=== PATIENT | male | born 1985 | race Caucasian/White ===

== ENCOUNTER 2018-03-09 02:25 | Inpatient (IN) ==
[2018-03-09] MEDS ORDERED: Tetanus/Diphtheria Toxoid Adult Vaccine Inj 0.5 ML Vial IM ONE (02:35)
[2018-03-09] MEDS ORDERED: Lidocaine 1% Inj 50 ML Vial INFILTRATN ONE (03:08)
[2018-03-09 03:31] LABS: Baso # (Auto) 0.1 th/mm3 (0.0-0.2); Baso % (Auto) 0.6 % (0.0-2.0); Eos % (Auto) 0.4 % (0.0-4.0); Hematocrit 38.2 % (39.0-51.0); Hemoglobin 12.9 gm/dL (13.0-17.0); Lymph # (Auto) 1.1 th/mm3 (1.0-4.8); Lymph % (Auto) 10.1 % (9.0-44.0); Mean Corpuscular HGB Conc 33.8 % (32.0-36.0); Mean Corpuscular Hemoglobin 30.1 pg (27.0-34.0); Mean Corpuscular Volume 88.8 fL (80.0-100.0); Mean Platelet Volume 10.2 fL (7.0-11.0); Mono # (Auto) 0.7 th/mm3 (0.0-0.9); Mono % (Auto) 6.2 % (0.0-8.0); Neut # (Auto) 8.6 th/mm3 (1.8-7.7); Neut % (Auto) 82.7 % (16.0-70.0); Platelet Count 129 th/mm3 (150-450); Red Cell Distribution Width 12.7 % (11.6-17.2); White Blood Count 10.4 th/mm3 (4.0-11.0)
[2018-03-09] MEDS ORDERED: LORazepam 1 MG Tablet PO ONE ×2 (03:44→08:11)
[2018-03-09 04:14] LABS: Alanine Aminotransferase 20 U/L (12-78); Albumin 3.4 g/dL (3.4-5.0); Alkaline Phosphatase 50 U/L (45-117); Anion Gap 14 meq/L (5-15); Aspartate Aminotransferase 13 U/L (15-37); Blood Urea Nitrogen 12 mg/dL (7-18); Calcium 6.8 mg/dL (8.5-10.1); Chloride 106 meq/L (98-107); Glomerular Filtration Rate Greater Than 89 mL/min (>89); Glucose,Random 100 mg/dL (74-106); Potassium 3.2 meq/L (3.5-5.1); Sodium 139 meq/L (136-145); Total Protein 5.9 g/dL (6.4-8.2)
[2018-03-09 04:19] LABS: Alcohol 225 mg/dL (0-5)
[2018-03-09] MEDS ORDERED: Calcium Gluconate Inj 2 GM in Dextrose 5% in Water Inj 100 ML IV.SIG ONE ×2 (04:28)
--- NOTE | 2018-03-09 04:47 | ED ---
HPI General Chief Complaint: Psychiatric Symptoms Stated Complaint: Psych Eval/VCSO/EVAC Time Seen by Provider: 03/09/18 02:35 Source: patient, EMS and police History of Present Illness HPI Narrative: Patient was drinking tonight, is a history of depression previous self-harm, fighting with his girlfriend, son and his girlfriend away, she felt bad a came back to check on him and found him having lacerated both arms with a pocket knife. Law-enforcement reports there is blood everywhere, and that he patient is very cooperative with EMS. Patient complains only of pain in his arms on his his lacerations. Related Data Home Medications Medication Instructions Recorded Confirmed Bipolar Med 03/09/18 Allergies Allergy/AdvReac Type Severity Reaction Status Date / Time No Known Allergies Allergy Unverified 03/09/18 03:06 Review of Systems ROS Unobtainable All other systems reviewed negative except as stated in HPI [facility] Medical History Medical History Bipolar disorder (Acute) Social History Social History Substance History: Unable to Obtain Smoking Status: Former smoker Tobacco Type: Cigarettes How Often Do You Have a Drink Containing Alcohol: Unable to Obtain Recent Travel in [facility] within the Last 8 Weeks: No Immunization History Tetanus Immunization: Unsure Exam Narrative Exam Narrative: GENERAL: Well-appearing 32-year-old man, no acute distress. SKIN: Focused skin assessment warm/dry. HEAD: Atraumatic. Normocephalic. EYES: Pupils equal and round. No scleral icterus. No injection or drainage. ENT: No nasal bleeding or discharge. Mucous membranes pink and moist. NECK: Trachea midline. No JVD. CARDIOVASCULAR: Regular rate and rhythm. No murmur appreciated. RESPIRATORY: No accessory muscle use. Clear to auscultation. Breath sounds equal bilaterally. GASTROINTESTINAL: Abdomen soft, non-tender, nondistended. Hepatic and splenic margins not palpable. MUSCULOSKELETAL: No obvious deformities. 2 large approximately 10 severe lacerations on the no and evidence of tendon injury. Distally neurovascularly intact. NEUROLOGICAL: Awake and alert. No obvious cranial nerve deficits. Motor grossly within normal limits. Normal speech. PSYCHIATRIC: Normal pleasant mood and affect. Will be quiet when talking about what happened the night, Procedures Laceration Right arm: Site: upper extremity Side (If applicable): right Size (cm): 10 Description: linear Depth: simple, single layer Anesthetic used: lidocaine 1% Anesthesia technique:: local infiltration Amount (mL): 5 Pre-repair:: wound explored and irrigated extensively Skin layer closed with: other ([place]) Number of sutures:: 10 Left arm: Site: upper extremity Side (If applicable): left Size (cm): 10 Description: linear Depth: simple, single layer Anesthetic used: lidocaine 1% Anesthesia technique:: local infiltration Amount (mL): 5 Pre-repair:: wound explored, irrigated extensively and deep structures intact Skin layer closed with: other ([place]) Number of sutures:: 10 Course Initial Documented Vital Signs Temperature 98.2 F 03/09/18 02:34 Pulse Rate 89 03/09/18 02:34 Respiratory Rate 16 03/09/18 02:34 Blood Pressure 122/75 03/09/18 02:34 Pulse Oximetry 100 03/09/18 02:34 Last Documented Vital Signs Temperature 98.2 F 03/09/18 02:34 Pulse Rate 89 03/09/18 02:34 Respiratory Rate 18 03/09/18 06:59 Blood Pressure 105/63 03/09/18 06:59 Pulse Oximetry 98 03/09/18 06:59 Sign Out Sign Out Data: Patient Sign Out occurred on 03/09/18 at 07:39. Patient's care was discussed, and care was transferred from Sampson Stein MD to Orlando Lorenz MD. Sign Out Comment: 32-year-old man, self-inflicted bilateral upper extremity lacerations, status post repair, incidentally found to have low calcium, possibly spurious, was given calcium here, will repeat chemistries following calcium, if improved will medically clear for psychiatry, otherwise admission for further evaluation and treatment. Last updated by Sampson Stein MD at 03/09/18 07:14 Post-Handoff Eval: Patient signed out to me at 7 AM, awaiting a second set of calcium check after being given calcium, and the check shows that the calcium levels are back to normal after replacement. At this point, my plan would be to medically clear the patient for psychiatric evaluation. Vital signs are stable. Medical Decision Making MDM Narrative Medical decision making narrative: 32-year-old man with 2 self-inflicted lacerations of for his. They were irrigated, anesthetized, and repaired with mustapha. He tolerated well. Basic labs were done and showed hypocalcemia. He looks well. Also related to alcohol use. Will replete calcium, recheck values. Psych screen. Lab Data Result diagrams: 03/09/18 03:20 03/09/18 07:56 Lab Results 03/09/18 03/09/18 03/09/18 Range/Units 03:20 03:20 05:00 WBC 10.4 (4.0-11.0) th/mm3 RBC 4.30 L (4.50-5.90) mil/mm3 Hgb 12.9 L (13.0-17.0) gm/dL Hct 38.2 L (39.0-51.0) % MCV 88.8 (80.0-100.0) fL MCH 30.1 (27.0-34.0) pg MCHC 33.8 (32.0-36.0) % RDW 12.7 (11.6-17.2) % Plt Count 129 L (150-450) th/mm3 MPV 10.2 (7.0-11.0) fL Neut % (Auto) 82.7 H (16.0-70.0) % Lymph % (Auto) 10.1 (9.0-44.0) % [place] % (Auto) 6.2 (0.0-8.0) % Eos % (Auto) 0.4 (0.0-4.0) % Baso % (Auto) 0.6 (0.0-2.0) % Neut # (Auto) 8.6 H (1.8-7.7) th/mm3 Lymph # (Auto) 1.1 (1.0-4.8) th/mm3 [place] # (Auto) 0.7 (0.0-0.9) th/mm3 Eos # (Auto) 0.0 (0.0-0.4) th/mm3 Baso # (Auto) 0.1 (0.0-0.2) th/mm3 WBC Differential . Differential Comment Auto diff final Sodium 139 (136-145) meq/L Potassium 3.2 L (3.5-5.1) meq/L Chloride 106 (98-107) meq/L Carbon Dioxide 19.0 L (21.0-32.0) meq/L Anion Gap 14 (5-15) meq/L BUN 12 (7-18) mg/dL Creatinine 0.96 (0.60-1.30) mg/dL Estimated GFR Greater than 89 (>89) mL/min Random Glucose 100 (74-106) mg/dL Calcium 6.8 L* (8.5-10.1) mg/dL Prot Corrected Calcium 7.4 L* (8.5-10.1) mg/dL Total Bilirubin 0.3 (0.2-1.0) mg/dL AST 13 L (15-37) U/L ALT 20 (12-78) U/L Alkaline Phosphatase 50 (45-117) U/L Total Protein 5.9 L (6.4-8.2) g/dL Albumin 3.4 (3.4-5.0) g/dL TSH 2.140 (0.358-3.740) uIU/mL Urine Opiates Screen Neg (Neg) Ur Barbiturates Screen Neg (Neg) Ur Amphetamines Screen Neg (Neg) U Benzodiazepines Scrn Neg (Neg) Urine Cocaine Screen Pos H (Neg) U Cannabinoids Screen Neg (Neg) Serum Alcohol 225 H (0-5) mg/dL 03/09/18 Range/Units 07:56 WBC (4.0-11.0) th/mm3 RBC (4.50-5.90) mil/mm3 Hgb (13.0-17.0) gm/dL Hct (39.0-51.0) % MCV (80.0-100.0) fL MCH (27.0-34.0) pg MCHC (32.0-36.0) % RDW (11.6-17.2) % Plt Count (150-450) th/mm3 MPV (7.0-11.0) fL Neut % (Auto) (16.0-70.0) % Lymph % (Auto) (9.0-44.0) % [place] % (Auto) (0.0-8.0) % Eos % (Auto) (0.0-4.0) % Baso % (Auto) (0.0-2.0) % Neut # (Auto) (1.8-7.7) th/mm3 Lymph # (Auto) (1.0-4.8) th/mm3 [place] # (Auto) (0.0-0.9) th/mm3 Eos # (Auto) (0.0-0.4) th/mm3 Baso # (Auto) (0.0-0.2) th/mm3 WBC Differential Differential Comment Sodium 137 (136-145) meq/L Potassium 3.4 L (3.5-5.1) meq/L Chloride 106 (98-107) meq/L Carbon Dioxide 19.3 L (21.0-32.0) meq/L Anion Gap 12 (5-15) meq/L BUN 10 (7-18) mg/dL Creatinine 0.76 (0.60-1.30) mg/dL Estimated GFR Greater than 89 (>89) mL/min Random Glucose 115 H (74-106) mg/dL Calcium 8.8 D (8.5-10.1) mg/dL Prot Corrected Calcium (8.5-10.1) mg/dL Total Bilirubin 0.4 (0.2-1.0) mg/dL AST 15 (15-37) U/L ALT 19 (12-78) U/L Alkaline Phosphatase 47 (45-117) U/L Total Protein 5.6 L (6.4-8.2) g/dL Albumin 3.2 L (3.4-5.0) g/dL TSH (0.358-3.740) uIU/mL Urine Opiates Screen (Neg) Ur Barbiturates Screen (Neg) Ur Amphetamines Screen (Neg) U Benzodiazepines Scrn (Neg) Urine Cocaine Screen (Neg) U Cannabinoids Screen (Neg) Serum Alcohol (0-5) mg/dL Discharge Plan Discharge Disposition Patient Disposition: 30 Still Patient Discharge Condition Condition: Stable Discharge Details Anticipated Discharge Date: 03/09/18 Diagnosis: Suicidal ideation, Hypocalcemia Physicians Team ED Provider: Orlando Lorenz Primary Care Provider: Primary Care Honey Delgadillo Rxs /Orders / Referrals /Forms Prescriptions: No Action Bipolar Med RF: 0 Discharge Interventions Interventions: Vital Signs Last Done: 03/09/18 06:59 Status ED Status: Medically Cleared
[2018-03-09] MEDS ORDERED: Calcium Chloride Inj 2 GM in Dextrose 5% in Water Inj 100 ML IV.SIG ONE ×2 (05:37)
[2018-03-09 06:08] LABS: Amphetamine Screen,Urine Neg (Neg); Barbiturate Screen,Urine Neg (Neg); Cannabinoid Screen,Urine Neg (Neg); Cocaine Screen,Urine Pos (Neg)
[2018-03-09 06:31] LABS: Opiate Screen,Urine Neg (Neg)
[2018-03-09 08:37] LABS: Alanine Aminotransferase 19 U/L (12-78); Albumin 3.2 g/dL (3.4-5.0); Alkaline Phosphatase 47 U/L (45-117); Anion Gap 12 meq/L (5-15); Aspartate Aminotransferase 15 U/L (15-37); Blood Urea Nitrogen 10 mg/dL (7-18); Calcium 8.8 mg/dL (8.5-10.1); Carbon Dioxide 19.3 meq/L (21.0-32.0); Chloride 106 meq/L (98-107); Glomerular Filtration Rate Greater Than 89 mL/min (>89); Glucose,Random 115 mg/dL (74-106); Potassium 3.4 meq/L (3.5-5.1); Sodium 137 meq/L (136-145); Total Protein 5.6 g/dL (6.4-8.2)
[2018-03-09] MEDS ORDERED: carBAMazepine 200 MG Tablet PO SCH (12:00)
--- NOTE | 2018-03-09 12:43 | ED ---
HPI - Psych - General Source: patient, EMS, police Mode of arrival: ambulatory Limitations: no limitations - History of Present Illness complaint: suicidal ideation Onset (ago): year(s) Duration: constant History of same: Yes Relieving factors: medication Exacerbating factors: other (External stressors) Context: significant life stressor Associated psychiatric symptoms: racing thoughts - General Chief Complaint: Psychiatric Symptoms Stated Complaint: Psych Eval/VCSO/EVAC Time Seen by Provider: 03/09/18 02:35 - History of Present Illness HPI Narrative: This is a 32-year-old single, male who presents to this facility under Rizo act for suicide attempt. Patient is previously known to this facility for mental health issues. Reviewed electronic medical records, labs, discuss case with staff. Patient's toxicology screen was positive for cocaine and his blood alcohol level was 0.225. Interview was conducted in patient's room and the J pod. Found lying on his bed awake, alert and oriented 4. His speech is clear, logical, and organized. He endorses suicidal ideation at baseline. He denies homicidal ideation or auditory or visual hallucinations. I can elicit no delusional material. There is no indication of internal stimulation or thought blocking. His mood today is good and his affect is euthymic. He is neatly groomed and asked appropriate throughout the interview. Per the medical doctors report, patient has bilateral approximate 10 cm cuts which were closed with mustapha. Patient reports that he lives in the [facility] area where he grew up. He states that he works at [employer]. He reports multiple attempts at suicide in the past and states that he has attempted overdose and has cut himself previously. He reports that at his baseline he has thoughts of killing himself but "certain triggers set me off". He states that his first suicide attempt was in his 20s. He advises that he has family in the area his father and mother whom he gets along with well and an older brother who he also has a "good supportive relationship with". He has previously had issues with substance abuse and alcohol. He reports he spent a short time in residential due to a DUI in his 20s. He reports that he is established outpatient with Dr. Tierra Hsu, psychiatrist. He advises that he is compliant with his medications however, he lost his insurance for a period of time so he was taking sample medications which a psychiatrist was providing him. He states his latest suicide attempt was over and acts who "I was talking to and she has been sending me mixed signals". He advises that he was diagnosed with bipolar disorder at 19 years of age. He smokes 1 pack of cigarettes per day, states that he drinks alcohol occasionally except for when he is stressed he, "binge drink a lot". He does admit to using cocaine 3 days ago. (Joanne Fenton) - Related Data Home Medications Medication Instructions Recorded Confirmed Bipolar Med 03/09/18 Allergies Allergy/AdvReac Type Severity Reaction Status Date / Time No Known Allergies Allergy Unverified 03/09/18 03:06 Review of Systems All other systems reviewed negative except as stated in HPI [facility] - History History Provided By: Patient - Medical History Medical History: Medical History (Last Reviewed 03/09/18 @ 12:38 by USAMA Cole) Bipolar disorder - Tobacco History Smoking Status: Former smoker Tobacco Type: Cigarettes - Alcohol History How Often Do You Have a Drink Containing Alcohol: Unable to Obtain - Substance Use History Substance History: No History of Abuse - Travel History Recent Travel in the [facility] Within the Last 8 Weeks: No - Immunization History Tetanus Immunization: Unsure Psychiatric History - Psychiatric History Psychiatric Treatment History: History of Psychiatric Treatment History of Inpatient Treatment: Yes Firearms in Home: No - Psychiatric History Reports a diagnosis of bipolar at 19 years of age. He states that he has had multiple attempts at suicide over the years. Reports that he follows up outpatient with Dr. Tierra Hsu psychiatrist. (Joanne Fenton) - Legal History DUI in his 20s. Denies current. (Joanne Fenton) - Family Psychiatric History States the only family member he is aware of with mental health issues with an uncle but states that he was adopted. (Joanne Fenton) Physical Exam - General Limitations: no limitations General appearance: alert Mental Status Examination Appearance: Appropriate, Well dressed/well groomed Consciousness: Alert Orientation: x4 Motor Activity: Normal gait Speech: Unremarkable Language: Adequate Fund of Knowledge: Adequate Attention and Concentration: Adequate Memory: Unremarkable Mood: Appropriate, Good Affect: Appropriate, Euthymic Thought Process & Associations: Intact Thought Content: Appropriate Hallucination Type: None Delusion Type: None Suicidal Ideation: Yes Suicidal Plan: No Suicidal Intention: No Homicidal Ideation: No Homicidal Plan: No Homicidal Intention: No Insight: Poor Judgment: Impulsive Initial Documented Vital Signs Temperature 98.2 F 03/09/18 02:34 Pulse Rate 89 03/09/18 02:34 Respiratory Rate 16 03/09/18 02:34 Blood Pressure 122/75 03/09/18 02:34 Pulse Oximetry 100 03/09/18 02:34 Last Documented Vital Signs Temperature 98.2 F 03/09/18 02:34 Pulse Rate 89 03/09/18 02:34 Respiratory Rate 18 03/09/18 06:59 Blood Pressure 105/63 03/09/18 06:59 Pulse Oximetry 98 03/09/18 06:59 MDM - Psych - Diagnosis (1) Bipolar 1 disorder Status: Acute (2) Suicide attempt Status: Acute - Lab Data Result diagrams: 03/09/18 03:20 03/09/18 07:56 - [facility] Narrative Medical decision making narrative: Given the severity of this patient's actions, his psychiatric history, and his multiple previous attempts he will be admitted under the Rizo act to a locked psychiatric inpatient unit for further evaluation and treatment as deemed necessary. Patient does have the capacity to consent to his medications. I have received his signature for the currently ordered psychotropics. A medical consult has been ordered to follow up with his self-inflicted injuries and his abnormal labs. (Joanne Fenton) - Lab Data Lab Results 03/09/18 03/09/18 03/09/18 Range/Units 03:20 03:20 05:00 WBC 10.4 (4.0-11.0) th/mm3 RBC 4.30 L (4.50-5.90) mil/mm3 Hgb 12.9 L (13.0-17.0) gm/dL Hct 38.2 L (39.0-51.0) % MCV 88.8 (80.0-100.0) fL MCH 30.1 (27.0-34.0) pg MCHC 33.8 (32.0-36.0) % RDW 12.7 (11.6-17.2) % Plt Count 129 L (150-450) th/mm3 MPV 10.2 (7.0-11.0) fL Neut % (Auto) 82.7 H (16.0-70.0) % Lymph % (Auto) 10.1 (9.0-44.0) % [place] % (Auto) 6.2 (0.0-8.0) % Eos % (Auto) 0.4 (0.0-4.0) % Baso % (Auto) 0.6 (0.0-2.0) % Neut # (Auto) 8.6 H (1.8-7.7) th/mm3 Lymph # (Auto) 1.1 (1.0-4.8) th/mm3 [place] # (Auto) 0.7 (0.0-0.9) th/mm3 Eos # (Auto) 0.0 (0.0-0.4) th/mm3 Baso # (Auto) 0.1 (0.0-0.2) th/mm3 WBC Differential . Differential Comment Auto diff final Sodium 139 (136-145) meq/L Potassium 3.2 L (3.5-5.1) meq/L Chloride 106 (98-107) meq/L Carbon Dioxide 19.0 L (21.0-32.0) meq/L Anion Gap 14 (5-15) meq/L BUN 12 (7-18) mg/dL Creatinine 0.96 (0.60-1.30) mg/dL Estimated GFR Greater than 89 (>89) mL/min Random Glucose 100 (74-106) mg/dL Calcium 6.8 L* (8.5-10.1) mg/dL Prot Corrected Calcium 7.4 L* (8.5-10.1) mg/dL Total Bilirubin 0.3 (0.2-1.0) mg/dL AST 13 L (15-37) U/L ALT 20 (12-78) U/L Alkaline Phosphatase 50 (45-117) U/L Total Protein 5.9 L (6.4-8.2) g/dL Albumin 3.4 (3.4-5.0) g/dL TSH 2.140 (0.358-3.740) uIU/mL Urine Opiates Screen Neg (Neg) Ur Barbiturates Screen Neg (Neg) Ur Amphetamines Screen Neg (Neg) U Benzodiazepines Scrn Neg (Neg) Urine Cocaine Screen Pos H (Neg) U Cannabinoids Screen Neg (Neg) Serum Alcohol 225 H (0-5) mg/dL 03/09/18 Range/Units 07:56 WBC (4.0-11.0) th/mm3 RBC (4.50-5.90) mil/mm3 Hgb (13.0-17.0) gm/dL Hct (39.0-51.0) % MCV (80.0-100.0) fL MCH (27.0-34.0) pg MCHC (32.0-36.0) % RDW (11.6-17.2) % Plt Count (150-450) th/mm3 MPV (7.0-11.0) fL Neut % (Auto) (16.0-70.0) % Lymph % (Auto) (9.0-44.0) % [place] % (Auto) (0.0-8.0) % Eos % (Auto) (0.0-4.0) % Baso % (Auto) (0.0-2.0) % Neut # (Auto) (1.8-7.7) th/mm3 Lymph # (Auto) (1.0-4.8) th/mm3 [place] # (Auto) (0.0-0.9) th/mm3 Eos # (Auto) (0.0-0.4) th/mm3 Baso # (Auto) (0.0-0.2) th/mm3 WBC Differential Differential Comment Sodium 137 (136-145) meq/L Potassium 3.4 L (3.5-5.1) meq/L Chloride 106 (98-107) meq/L Carbon Dioxide 19.3 L (21.0-32.0) meq/L Anion Gap 12 (5-15) meq/L BUN 10 (7-18) mg/dL Creatinine 0.76 (0.60-1.30) mg/dL Estimated GFR Greater than 89 (>89) mL/min Random Glucose 115 H (74-106) mg/dL Calcium 8.8 D (8.5-10.1) mg/dL Prot Corrected Calcium (8.5-10.1) mg/dL Total Bilirubin 0.4 (0.2-1.0) mg/dL AST 15 (15-37) U/L ALT 19 (12-78) U/L Alkaline Phosphatase 47 (45-117) U/L Total Protein 5.6 L (6.4-8.2) g/dL Albumin 3.2 L (3.4-5.0) g/dL TSH (0.358-3.740) uIU/mL Urine Opiates Screen (Neg) Ur Barbiturates Screen (Neg) Ur Amphetamines Screen (Neg) U Benzodiazepines Scrn (Neg) Urine Cocaine Screen (Neg) U Cannabinoids Screen (Neg) Serum Alcohol (0-5) mg/dL
--- NOTE | 2018-03-09 13:31 | P.CONIM ---
History of Present Illness Requesting Physician: Navi Costello Reason for Consult: Opinion and recommendations on patient's bilateral forearm lacerations Primary Care Provider: No Primary Care Physician Chief Complaint: I cut myself History of Present Illness: 32-year-old white female male with a history of bipolar disorder was recently admitted to psychiatric unit for suicidal attempt and major depression. He presented in the emergency room with self-inflicted laceration of bilateral forearm using a razor blade. The lacerations currently has been repaired and stapled by the ED physician. He denies any other trauma to the area. He denies any active suicidal thoughts and ideations at this time. He denies any other medical or surgical history. He denies any active pain of the area. Review of Systems All other systems reviewed negative except as stated in HPI [facility] - History History Provided By: Patient - Medical / Surgical Hx Neg / Unobtainable Surgical History: No Previous Surgery - Medical History Medical History: Medical History (Last Updated 03/09/18 @ 13:27 by Magaly Mcdowell MD) Anxiety Bipolar disorder - Family History Family History: Family History (Last Updated 03/09/18 @ 13:28 by Magaly Mcdowell MD) Other Family history non-contributory - Tobacco History Second Hand Smoke Exposure: No Tobacco Use In Past 30 Days: Yes Smoking Status: Former smoker Tobacco Type: Cigarettes Packs Per Day: 1 - Alcohol History How Often Do You Have a Drink Containing Alcohol: 2 to 3 times a week - Substance Use History Substance History: No History of Abuse - Travel History Recent Travel in the [facility] Within the Last 8 Weeks: No - Immunization History Tetanus Immunization: Unsure Medications and Allergies Active Medications: Active Medications Carbamazepine (Tegretol) 200 mg PO BID FÉLIX Diphenhydramine HCl (Benadryl) 50 mg PO HS PRN PRN Reason: INSOMNIA Hydroxyzine HCl (Atarax) 50 mg PO Q6H PRN PRN Reason: ANXIETY Nicotine (Habitrol 21 Mg Patch.24 Hr) 1 patch T-DERMAL DAILY FÉLIX Quetiapine Fumarate (Seroquel) 100 mg PO HS FÉLIX Senna/Docusate Sodium (Kathy-Colace) 1 tab PO BID FÉLIX Sennosides (Senokot) 17.2 mg PO Q12H PRN PRN Reason: Moderate Constipation Allergies Allergy/AdvReac Type Severity Reaction Status Date / Time No Known Allergies Allergy Unverified 03/09/18 03:06 Home Medications Medication Instructions Recorded Confirmed Type Bipolar Med 03/09/18 History Exam Vital signs: Vital Signs 03/09/18 02:34 03/09/18 06:59 03/09/18 11:10 Temperature 98.2 F Pulse Rate 89 110 H Respiratory Rate 16 18 20 Blood Pressure 122/75 105/63 105/71 Pulse Oximetry 100 98 Intake & Output 03/08/18 03/09/18 03/09/18 18:59 06:59 18:59 Weight 68.039 kg 150 kg Narrative: GENERAL: Well-nourished well-developed white male no acute distress pleasant SKIN: Warm and dry. Bilateral forearm showed lacerations repaired with mustapha in place. No active drainage seen. Wound closed with mustapha. HEAD: Atraumatic. Normocephalic. EYES: Pupils equal and round. No scleral icterus. No injection or drainage. ENT: No nasal bleeding or discharge. Mucous membranes pink and moist. NECK: Trachea midline. No JVD. CARDIOVASCULAR: Regular rate and rhythm. RESPIRATORY: No accessory muscle use. Clear to auscultation. Breath sounds equal bilaterally. GASTROINTESTINAL: Abdomen soft, non-tender, nondistended. Hepatic and splenic margins not palpable. Normoactive bowel sounds MUSCULOSKELETAL: Extremities without clubbing, cyanosis, or edema. NEUROLOGICAL: Awake and alert to person place time and situation. No obvious cranial nerve deficits. Motor grossly within normal limits. Five out of 5 muscle strength in the arms and legs. Normal speech. PSYCHIATRIC: Appropriate mood and affect; insight and judgment normal. Results - Labs CBC & Chem 7: 03/09/18 03:20 03/09/18 07:56 Labs: Laboratory Results - last 24 hr 03/09/18 03/09/18 03/09/18 03:20 03:20 05:00 WBC 10.4 RBC 4.30 L Hgb 12.9 L Hct 38.2 L MCV 88.8 MCH 30.1 MCHC 33.8 RDW 12.7 Plt Count 129 L MPV 10.2 Neut % (Auto) 82.7 H Lymph % (Auto) 10.1 [place] % (Auto) 6.2 Eos % (Auto) 0.4 Baso % (Auto) 0.6 Neut # (Auto) 8.6 H Lymph # (Auto) 1.1 [place] # (Auto) 0.7 Eos # (Auto) 0.0 Baso # (Auto) 0.1 WBC Differential . Differential Comment Auto diff final Sodium 139 Potassium 3.2 L Chloride 106 Carbon Dioxide 19.0 L Anion Gap 14 BUN 12 Creatinine 0.96 Estimated GFR Greater than 89 Random Glucose 100 Calcium 6.8 L* Prot Corrected Calcium 7.4 L* Total Bilirubin 0.3 AST 13 L ALT 20 Alkaline Phosphatase 50 Total Protein 5.9 L Albumin 3.4 TSH 2.140 Urine Opiates Screen Neg Ur Barbiturates Screen Neg Ur Amphetamines Screen Neg U Benzodiazepines Scrn Neg Urine Cocaine Screen Pos H U Cannabinoids Screen Neg Serum Alcohol 225 H 03/09/18 07:56 WBC RBC Hgb Hct MCV MCH MCHC RDW Plt Count MPV Neut % (Auto) Lymph % (Auto) [place] % (Auto) Eos % (Auto) Baso % (Auto) Neut # (Auto) Lymph # (Auto) [place] # (Auto) Eos # (Auto) Baso # (Auto) WBC Differential Differential Comment Sodium 137 Potassium 3.4 L Chloride 106 Carbon Dioxide 19.3 L Anion Gap 12 BUN 10 Creatinine 0.76 Estimated GFR Greater than 89 Random Glucose 115 H Calcium 8.8 D Prot Corrected Calcium Total Bilirubin 0.4 AST 15 ALT 19 Alkaline Phosphatase 47 Total Protein 5.6 L Albumin 3.2 L TSH Urine Opiates Screen Ur Barbiturates Screen Ur Amphetamines Screen U Benzodiazepines Scrn Urine Cocaine Screen U Cannabinoids Screen Serum Alcohol Assessment and Plan - Plan 1. Bipolar disorder with major depression and suicidal attempt and ideation- treatment per psychiatry. Status post Rizo act. 2. Bilateral forearm lacerationstatus post repairrecommend at this time local wound care with bacitracin ointment daily, monitor and anticipate staple removal and 5-7 days pending healing process. 3. DVT prophylaxisNo mechanical or pharmaceutical VTE prophalaxis administered due to patient's low risk assessment of VTE. Encouraged ambulation.
[2018-03-09] MEDS: Ibuprofen 600 MG Tablet PO PRN (21:09)
[2018-03-09] MEDS: QUEtiapine 100 MG Tablet PO SCH (21:09)
[2018-03-09] MEDS: carBAMazepine 200 MG Tablet PO SCH (21:10)
[2018-03-09] MEDS: Senna/Docusate Sodium 8.6/50 MG Tablet PO SCH ×2 (21:10→23:11)
[2018-03-10 08:48] LABS: Baso % (Auto) 0.7 % (0.0-2.0); Eos % (Auto) 0.8 % (0.0-4.0); Hematocrit 39.3 % (39.0-51.0); Hemoglobin 13.2 gm/dL (13.0-17.0); Lymph # (Auto) 1.2 th/mm3 (1.0-4.8); Lymph % (Auto) 22.4 % (9.0-44.0); Mean Corpuscular HGB Conc 33.6 % (32.0-36.0); Mean Corpuscular Hemoglobin 29.7 pg (27.0-34.0); Mean Corpuscular Volume 88.4 fL (80.0-100.0); Mean Platelet Volume 10.2 fL (7.0-11.0); Mono # (Auto) 0.4 th/mm3 (0.0-0.9); Mono % (Auto) 8.5 % (0.0-8.0); Neut # (Auto) 3.6 th/mm3 (1.8-7.7); Neut % (Auto) 67.6 % (16.0-70.0); Platelet Count 130 th/mm3 (150-450); Red Blood Count 4.45 mil/mm3 (4.50-5.90); Red Cell Distribution Width 12.8 % (11.6-17.2); White Blood Count 5.3 th/mm3 (4.0-11.0)
[2018-03-10] MEDS: carBAMazepine 200 MG Tablet PO SCH (09:01)
[2018-03-10] MEDS: Ibuprofen 600 MG Tablet PO PRN ×2 (09:06→20:53)
[2018-03-10] MEDS: Bacitracin Oint 0.9 GM Packet TOPICAL SCH (09:08)
[2018-03-10] MEDS: Senna/Docusate Sodium 8.6/50 MG Tablet PO SCH ×2 (09:08→20:32)
[2018-03-10 09:38] LABS: Calcium 8.4 mg/dL (8.5-10.1); Chol/HDL Ratio 2.06 Ratio; HDL Cholesterol 58.1 mg/dL (40.0-60.0)
[2018-03-10 09:42] LABS: Potassium 4.3 meq/L (3.5-5.1)
[2018-03-10] MEDS ORDERED: Aluminum/Magnesium/Simethacone Susp 30 ML UDC PO PRN (09:50)
--- NOTE | 2018-03-10 09:55 | P.HPPSY ---
Provisional Diagnosis Admission Date: March 09, 2018 11:57 [place].: Bipolar disorder recurrent most recent episode depression without psychosis with suicide attempt Competence Certification of Person's Competence To Provide Express and Informed Consent I have personally examined Nitesh Henry, a person being served at [facility] [[email or web address]] on, March 10, 2018 0953. Express and informed consent means consent voluntarily given in writing, by a competent person, after sufficient explanation and disclosure of the subject matter involved to enable the person to make a knowing and willful decision without any element of force, fraud, deceit, duress, or other form of constraint or coercion. This person is 18 years of age or older, is not now known to be incompetent to consent to treatment with a guardian advocate, and does not have a health care surrogate or proxy currently making medical treatment decisions. I have found this person to be one of the following: [] Competent to provide express and informed consent, as defined above, for voluntary admission to this facility and is competent to provide express and informed consent for treatment. He/she has the consistent capacity to make well reasoned, willful, and knowing decisions concerning his or her medical or mental health treatment. The person fully and consistently understands the purpose of the admission for examination/placement and is fully capable of personally exercising all rights assured under [place] [] Incompetent to provide express and informed consent to voluntary admission, and this is incompetent to provide express and informed consent to treatment. The person must be transferred to involuntary status and a petition for a guardian advocate filed with the Circuit Court. [xxx] Refusing to provide express and informed consent to voluntary admission but is competent to provide express and informed consent for treatment. The person must be discharged or transferred to involuntary status. Form shall be completed within 24 hours of a person's arrival at the receiving facility and filed in the clinical record of each person: 1. Admitted on a voluntary basis 2. Permitted to provide express and informed consent to his/her own treatment 3. Allowed to transfer from involuntary to voluntary status 4. Prior to permitting a person to consent to his or her own treatment after having been previously found incompetent to consent to treatment. History of Present Illness Capacity: Lacks capacity (Patient lacks capacity to sign for admission patient has capacity to sign for medication) Chief Complaint: Depressed the suicide attempt History of Present Illness: Patient is a 32-year-old white male comes here under Rizo act by the [facility]'s office dated 03/09/2018 at 0140 a.m. that document reviewed essentially stating sure utilized an unknown sharp object and cut both his forearms were refused to explain to Donna Saurabh what happened tracorina did state "I thought I did not write this time" family member on scene. Patient seen screen in the ED blood alcohol level of 225 and toxicology positive for cocaine. At the present time patient sitting quietly in his room counselor sariah present throughout session. Patient is things slender somewhat disheveled white male sitting calmly on his bed dressings noted on both distal forearms. Stating that he get into a fight with his girlfriend of a couple months continues depressed living him trying to kill himself. He states he lives with his mother. 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 Patient gives a long history of psychiatric issues with multiple past psychiatric hospitalizations more towards [facility], he is seeing her psychiatrist is not seeing a psychiatrist that is seen intermittently since she was 19 and 20 years of age. He is a long history of multiple drug abuse also including alcohol and marijuana cocaine mollies. He is also using cocaine intravenously in the past. He states he has an appointment with his psychiatrist this coming Monday. States she has been diagnosed bipolar since a teenager. He does state he has been fairly compliant with his medications. That he slept well last night. He does denies suicidality at this time. But when asked about taking suicide pill he said "it is tempting" patient denies any other significant medical surgical problems. At this time he does meet Rizo criteria for involuntary psychiatric hospitalization I will do first opinion request second opinion they feel he does have capacity to sign for his medications. Hope this be short stay and we can discharge him first part of next week to make it to his outpatient psychiatric appointment - Inpatient Certification I certify that the inpatient services were ordered in accordance with Medicare regulations governing the order. This includes certification that hospital inpatient services are reasonable and necessary and in the case of services not specified as inpatient-only under 42 CFR 419.22(n), that they are appropriately provided as inpatient services in accordance to with the 2-midnight benchmark under 43 CFR 412.3(e) I certify that inpatient psychiatric hospital services are medically necessary. Evaluation and treatment and/or diagnostic testing are expected to improve the patient's condition. The patient needs on a daily basis, active treatment furnished directly by or requiring the supervision of inpatient psychiatric facility personnel. Estimated Total Length of Stay (Days): 7 Plans for Post Hospital Care: Home Review of Systems All other systems reviewed negative except as stated in HPI [facility] - History History Provided By: Patient - Medical History Medical History: Medical History (Last Updated 03/09/18 @ 13:27 by Magaly Mcdowell MD) Anxiety Bipolar disorder - Family History Family History: Family History (Last Updated 03/09/18 @ 13:28 by Magaly Mcdowell MD) Other Family history non-contributory - Tobacco History Second Hand Smoke Exposure: No Tobacco Use In Past 30 Days: Yes Smoking Status: Former smoker Tobacco Type: Cigarettes Packs Per Day: 1 - Alcohol History How Often Do You Have a Drink Containing Alcohol: 2 to 3 times a week - Substance Use History Substance History: No History of Abuse - Travel History Recent Travel in the [facility] Within the Last 8 Weeks: No - Immunization History Tetanus Immunization: Unsure Quality Measures - Psychiatric History Psychological trauma history: Patient denies Violence risk to others in the last 6 months: Low Violence risk to self in the last 6 months: Moderate to high multiple suicide attempts in the past - Substance Abuse History Drug or alcohol use in the past 12 months: Negative alcohol and substance abuser - Patient Strengths Patient's strengths (minimum of 2): Patient verbal able access healthcare Medications and Allergies Active Medications: Active Medications Al Hydrox/Mg Hydrox/Simethicone (Mag-Al Plus Susp Liq) 30 ml PO Q6H PRN PRN Reason: DYSPEPSIA Al Hydroxide/Mg Hydroxide (Milk Of Magnesia Liq) 30 ml PO Q12H PRN PRN Reason: Mild Constipation Bacitracin (Bacitracin Oint Packet) 0.9 gm TOPICAL DAILY FÉLIX Stop: 03/17/18 08:59 Last Admin: 03/10/18 09:08 Dose: 0.9 gm Carbamazepine (Tegretol) 200 mg PO BID FÉLIX Last Admin: 03/10/18 09:01 Dose: 200 mg Diphenhydramine HCl (Benadryl) 50 mg PO HS PRN PRN Reason: INSOMNIA Hydroxyzine HCl (Atarax) 50 mg PO Q6H PRN PRN Reason: ANXIETY Nicotine (Habitrol 21 Mg Patch.24 Hr) 1 patch T-DERMAL DAILY FOR[facility]LY [facility], 1928[facility]1983 Last Admin: 03/10/18 09:08 Dose: 1 patch Quetiapine Fumarate (Seroquel) 100 mg PO HS FOR[facility]LY [facility], [facility]1983 Last Admin: 03/09/18 21:09 Dose: 100 mg Senna/Docusate Sodium (Kathy-Colace) 1 tab PO BID [facility], [facility]1983 Last Admin: 03/10/18 09:08 Dose: Not Given Sennosides (Senokot) 17.2 mg PO Q12H PRN PRN Reason: Moderate Constipation Allergies Allergy/AdvReac Type Severity Reaction Status Date / Time No Known Allergies Allergy Unverified 03/09/18 03:06 Home Medications Medication Instructions Recorded Confirmed Type Bipolar Med 03/09/18 History Results - Labs CBC & Chem 7: 03/10/18 08:30 03/10/18 08:40 Labs: Laboratory Results - last 24 hr 03/10/18 03/10/18 08:30 08:40 WBC 5.3 RBC 4.45 L Hgb 13.2 Hct 39.3 MCV 88.4 MCH 29.7 MCHC 33.6 RDW 12.8 Plt Count 130 L MPV 10.2 Neut % (Auto) 67.6 Lymph % (Auto) 22.4 Dixon % (Auto) 8.5 H Eos % (Auto) 0.8 Baso % (Auto) 0.7 Neut # (Auto) 3.6 Lymph # (Auto) 1.2 Dixon # (Auto) 0.4 Eos # (Auto) 0.0 Baso # (Auto) 0.0 WBC Differential . Differential Comment Auto diff final Sodium 139 Potassium 4.3 D Chloride 104 Carbon Dioxide 25.0 Anion Gap 10 BUN 12 Creatinine 1.10 Estimated GFR 78 L Random Glucose 162 H Calcium 8.4 L Triglycerides 95 Cholesterol 120 LDL Cholesterol, Calc 43 HDL Cholesterol 58.1 Cholesterol/HDL Ratio 2.06 Exam Vital signs: Vital Signs 03/09/18 11:10 03/09/18 13:32 03/09/18 18:00 Temperature 97.9 F Pulse Rate 110 H 100 H 109 H Respiratory Rate 20 20 18 Blood Pressure 105/71 105/71 135/87 Pulse Oximetry 99 03/10/18 06:18 03/10/18 08:24 Temperature 97.7 F Pulse Rate 92 H 91 H Respiratory Rate 18 Blood Pressure 96/58 L 123/69 Pulse Oximetry 99 Intake & Output 03/09/18 03/10/18 03/10/18 18:59 06:59 18:59 Intake Total 360 / 360 Balance 360 / 360 Weight 150 kg 68.039 kg Intake: Oral 360 / 360 Other: Weight On Admission 68.039 kg Narrative: Patient is sitting quietly in his room on his bed. He is in no acute distress, no complaints of chest pain, patient having no respiratory distress, no complaints of abdominal pain, patient moving all 4 extremities without difficulty distress is noted both forearms Mental Status Examination Appearance: Appropriate Consciousness: Alert Orientation: x4 Motor Activity: Normal gait Speech: Unremarkable Language: Adequate Fund of Knowledge: Adequate Attention and Concentration: Adequate Memory: Unremarkable Mood: Other (Euthymic to mildly dysphoric) Affect: Other (Good range and intensity) Thought Process & Associations: Intact Thought Content: Appropriate Hallucination Type: None Delusion Type: None Suicidal Ideation: Yes (Denies at this time) Suicidal Plan: No Suicidal Intention: No Homicidal Ideation: No Homicidal Plan: No Homicidal Intention: No Insight: Poor Judgment: Impulsive Assessment and Plan - Plan Plan: Estimated LOS: [] days at this time patient meets criteria for inpatient involuntary psychiatric hospitalization I will do first opinion request second opinion they feel he does have capacity hope this be short stay we will continue his medications as prescribed by his outpatient psychiatrist Justification for Continued Inpatient Stay: At this time patient would decompensate a place to a lower level of care Discharge Planning: Probable return home with family Request Healthcare Surrogate/Guardian Advocate?: No
[2018-03-10] MEDS: carBAMazepine 100 MG Chewable Tablets PO SCH ×2 (11:59→20:32)
--- NOTE | 2018-03-10 17:05 | P.PN ---
Subjective Interval history: Follow-up visit for bilateral forearm lacerations. Patient seen and examined in his room, appears to be in no acute distress. He denies any pain or discomfort, denies any fevers, chills, nausea, vomiting, diarrhea, cough or shortness of breath. Nursing staff with no acute complaints or concerns. Physical Exam Vital signs: Vital Signs 03/09/18 18:00 03/10/18 06:18 03/10/18 08:24 Temperature 36.6 C 36.5 C Pulse Rate 109 H 92 H 91 H Respiratory Rate 18 18 Blood Pressure 135/87 96/58 L 123/69 Pulse Oximetry 99 99 Intake & Output 03/09/18 03/10/18 03/10/18 18:59 06:59 18:59 Intake Total 360 / 360 Balance 360 / 360 Weight 150 kg 68.039 kg Intake: Oral 360 / 360 Other: Weight On Admission 68.039 kg Narrative: GENERAL: Well-nourished well-developed white male no acute distress pleasant SKIN: Warm and dry. Bilateral forearm showed lacerations repaired with mustapha in place. No active drainage seen. Wound closed with mustapha well approximated. CARDIOVASCULAR: Regular rate and rhythm. RESPIRATORY: No accessory muscle use. Clear to auscultation. Breath sounds equal bilaterally. MUSCULOSKELETAL: Extremities without clubbing, cyanosis, or edema. NEUROLOGICAL: Awake and alert to person place time and situation. No obvious cranial nerve deficits. Motor grossly within normal limits. Normal speech. PSYCHIATRIC: Appropriate mood and affect; insight and judgment normal. Results - Labs CBC & Chem 7: 03/10/18 08:30 03/10/18 08:40 Laboratory Results - last 24 hr 03/10/18 03/10/18 08:30 08:40 WBC 5.3 RBC 4.45 L Hgb 13.2 Hct 39.3 MCV 88.4 MCH 29.7 MCHC 33.6 RDW 12.8 Plt Count 130 L MPV 10.2 Neut % (Auto) 67.6 Lymph % (Auto) 22.4 [place] % (Auto) 8.5 H Eos % (Auto) 0.8 Baso % (Auto) 0.7 Neut # (Auto) 3.6 Lymph # (Auto) 1.2 [place] # (Auto) 0.4 Eos # (Auto) 0.0 Baso # (Auto) 0.0 WBC Differential . Differential Comment Auto diff final Sodium 139 Potassium 4.3 D Chloride 104 Carbon Dioxide 25.0 Anion Gap 10 BUN 12 Creatinine 1.10 Estimated GFR 78 L Random Glucose 162 H Calcium 8.4 L Triglycerides 95 Cholesterol 120 LDL Cholesterol, Calc 43 HDL Cholesterol 58.1 Cholesterol/HDL Ratio 2.06 Assessment and Plan - Plan Bipolar disorder with depression/SA -Treatment plan per psychiatry Bilateral forearm lacerations - s/p repair, continue bacitracin ointment daily, no signs of infection. Patient was instructed to follow-up with PCP on Monday once discharged for possible staple removal. Patient verbalizes understanding. DVT prophylaxis-ambulation Patient medically clear pending psychiatry discharge. [facility] will sign off, please reconsult if needed.
[2018-03-10] MEDS: QUEtiapine 100 MG Tablet PO SCH (20:32)
[2018-03-11] MEDS: Senna/Docusate Sodium 8.6/50 MG Tablet PO SCH ×2 (09:01→20:57)
[2018-03-11] MEDS: carBAMazepine 100 MG Chewable Tablets PO SCH ×2 (09:01→20:58)
[2018-03-11] MEDS: Ibuprofen 600 MG Tablet PO PRN ×2 (09:25→21:19)
--- NOTE | 2018-03-11 12:09 | P.PNPSY ---
Subjective Chief Complaint: Depressed the suicide attempt Remarks: This is a request for second opinion. Admission note was reviewed and I agree with the history. Patient was seen and case was discussed with nursing. We discussed patient's stressors and reasons for cutting. Patient says that he regrets his actions and is looking forward to an outpatient psychiatric appointment on Monday. He is tolerating his medications well. Sleep is variable. He social on the unit. Today, he denies any suicidal or homicidal ideation intent or plan. He admits to sporadic drug use Mental Status Examination Appearance: Appropriate Consciousness: Alert Orientation: x4 Motor Activity: Normal gait Speech: Unremarkable Language: Adequate Fund of Knowledge: Adequate Attention and Concentration: Adequate Memory: Unremarkable Mood: Appropriate Affect: Other (Good range and intensity) Thought Process & Associations: Intact Thought Content: Appropriate Hallucination Type: None Delusion Type: None Suicidal Ideation: No (Denies at this time) Suicidal Plan: No Suicidal Intention: No Homicidal Ideation: No Homicidal Plan: No Homicidal Intention: No Insight: Poor Judgment: Impulsive Assessment and Plan - Plan Plan: I agree with the first opinion to continue petition. Criteria include suicide attempt Justification for Continued Inpatient Stay: Patient would decompensate in a less restrictive setting Request Healthcare Surrogate/Guardian Advocate?: No
[2018-03-11] MEDS: Bacitracin Oint 0.9 GM Packet TOPICAL SCH (14:27)
[2018-03-11] MEDS: QUEtiapine 100 MG Tablet PO SCH (20:57)
[2018-03-12] MEDS: Ibuprofen 600 MG Tablet PO PRN (09:07)
[2018-03-12] MEDS: carBAMazepine 100 MG Chewable Tablets PO SCH (09:08)
[2018-03-12] MEDS: Bacitracin Oint 0.9 GM Packet TOPICAL SCH (09:08)
[2018-03-12] MEDS: Senna/Docusate Sodium 8.6/50 MG Tablet PO SCH (09:09)
--- NOTE | 2018-03-12 12:21 | ECG ---
Date Performed: 03/10/2018 Time Performed: 10:07:42 PTAGE: 32 years EKG: Sinus rhythm NORMAL ECG NO PREVIOUS TRACING DOCTOR: Chris Bartholomew Interpretating Date/Time 03/12/2018 12:10:25
--- NOTE | 2018-03-12 13:29 | P.DSPSY ---
Psychiatry Discharge Summary Inpatient Psychiatric care?: Yes Advance Directives: No Mental Health Advance Directive: No Health Care Proxy: No - Admission Admission Date: March 09, 2018 11:57 - Admission Diagnosis (1) Bipolar 1 disorder Code(s): F31.9 - Bipolar disorder, unspecified Brief History: Patient is a 32-year-old white male comes here under Rizo act by the [facility]'s office dated 03/09/2018 at 0140 a.m. that document reviewed essentially stating sure utilized an unknown sharp object and cut both his forearms were refused to explain to [place] Blom what happened galinacorina did state "I thought I did not write this time" family member on scene. Patient seen screen in the ED blood alcohol level of 225 and toxicology positive for cocaine. At the present time patient sitting quietly in his room counselor sariah present throughout session. Patient is things slender somewhat disheveled white male sitting calmly on his bed dressings noted on both distal forearms. Stating that he get into a fight with his girlfriend of a couple months continues depressed living him trying to kill himself. He states he lives with his mother. 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 Patient gives a long history of psychiatric issues with multiple past psychiatric hospitalizations more towards [facility], he is seeing her psychiatrist is not seeing a psychiatrist that is seen intermittently since she was 19 and 20 years of age. He is a long history of multiple drug abuse also including alcohol and marijuana cocaine mollies. He is also using cocaine intravenously in the past. He states he has an appointment with his psychiatrist this coming Monday. States she has been diagnosed bipolar since a teenager. He does state he has been fairly compliant with his medications. That he slept well last night. He does denies suicidality at this time. But when asked about taking suicide pill he said "it is tempting" patient denies any other significant medical surgical problems. At this time he does meet Rizo criteria for involuntary psychiatric hospitalization I will do first opinion request second opinion they feel he does have capacity to sign for his medications. Hope this be short stay and we can discharge him first part of next week to make it to his outpatient psychiatric appointment Tobacco Use In Past 30 Days: Yes How Often Do You Have a Drink Containing Alcohol: 2 to 3 times a week Hospital Course: Patient's hospital course was uneventful, he was calm and cooperative throughout complaint medications. Says he has been sleeping better. His mood appointment with his own psychiatrist in [place] for tomorrow. He also will be going to substance abuse groups and counseling. Patient today denies suicidality homicidality voices or visions. Is able contract to do no harm. His mother will be picking him up today - Discharge Discharge Date: 03/12/18 - Discharge Diagnosis (1) Bipolar disorder, most recent episode depressed Diagnosis: Principal Code(s): F31.30 - Bipolar disorder, current episode depressed, mild or moderate severity, unspecified Status: Acute Discharge Disposition: Home - Discharge Instructions Discharge Diet: Regular Diet Activities You Can Perform: Regular- No Restrictions - Discharge Time > 30 minutes Mental Status Examination Appearance: Appropriate Consciousness: Alert Orientation: x4 Motor Activity: Normal gait Speech: Unremarkable Language: Adequate Fund of Knowledge: Adequate Attention and Concentration: Adequate Memory: Unremarkable Mood: Appropriate Affect: Other (Good range and intensity) Thought Process & Associations: Intact Thought Content: Appropriate Hallucination Type: None Delusion Type: None Suicidal Ideation: No (Denies at this time) Suicidal Plan: No Suicidal Intention: No Homicidal Ideation: No Homicidal Plan: No Homicidal Intention: No Insight: Poor Judgment: Impulsive Discharge/Advance Care Plan - Results Vital Signs: Last Vital Signs Temp 97.5 F L 03/12/18 06:00 Pulse 76 03/12/18 06:00 Resp 16 03/12/18 06:00 BP 100/63 03/12/18 06:00 Pulse Ox 97 03/12/18 06:00 Lab Results: Laboratory Results Hemoglobin A1c 5.0 % (4.3-6.0) 03/10/18 08:30 Triglycerides 95 mg/dL (42-150) 03/10/18 08:40 Cholesterol 120 mg/dL (120-200) 03/10/18 08:40 LDL Cholesterol, Calc 43 mg/dL (0-99) 03/10/18 08:40 HDL Cholesterol 58.1 mg/dL (40.0-60.0) 03/10/18 08:40 TSH 2.140 uIU/mL (0.358-3.740) 03/09/18 03:20 Summary of Procedures: Repair laceration to both volar forearms Pending Results: None - Medications Number of antipsychotic medications at discharge: 1 - Discharge Care Plan Goals to Promote Your Health: * To prevent worsening of your condition and complications * To maintain your health at the optimal level Directions to Meet Your Goals: Take your medications as prescribed Follow your dietary instruction Follow activity as directed Keep your appointments as scheduled Take your immunizations and boosters as scheduled If your symptoms worsen call your PCP, if no PCP go to Urgent Care Center or Emergency Room For 20/03 questions related to your inpatient stay or results of tests pending at discharge, please contact Dr. Prabhu Jackson MD at Smoking is Dangerous to Your Health. Avoid second hand smoking
== END 2018-03-12 15:10 | disposition home or self-care (01) ==
LOC: NEPC 02:25 → NEPJ 09:50 → NEDA 11:57 → H260 13:55
PROVIDERS: ADMIT Psychiatry & Neurology Psychiatry; ATTEND Psychiatry & Neurology Psychiatry